=== PATIENT | male | born 1990 | race Caucasian/White ===

== ENCOUNTER → 2018-04-23 17:17 | Outpatient (CLI) | payer MEDICAID, SELFPAY ==
[2018-04-23 18:47] LABS: Free T3 2.9 pg/mL (2.18-3.98)
[2018-04-28 12:53] LABS: EBV Acute VCA IgM < 36.0 U/mL (0.0-35.9); EBV Early Antigen IgG <9.0 U/mL (0.0-8.9)
== END ==
PROVIDERS: Family Provider Family Medicine; PCP Family Medicine
DX: E03.9 Hypothyroidism, unspecified (principal); R53.82 Chronic fatigue, unspecified
CPT/HCPCS: 36415; 84481; 86663; 86664; 86665

== ENCOUNTER → 2018-08-14 17:07 | Outpatient (CLI) | payer MEDICAID, SELFPAY ==
[2018-08-14 18:22] LABS: Free T3 2.8 pg/mL (2.18-3.98)
== END ==
PROVIDERS: Family Provider Family Medicine; PCP Family Medicine
DX: E03.9 Hypothyroidism, unspecified (principal)
CPT/HCPCS: 36415; 84481

== ENCOUNTER → 2018-11-25 17:37 | Outpatient (CLI) | payer MEDICAID, SELFPAY ==
[2018-11-25 18:54] LABS: Free T3 4.5 pg/mL (2.18-3.98)
== END ==
PROVIDERS: Family Provider Family Medicine; PCP Family Medicine
DX: E03.9 Hypothyroidism, unspecified (principal)
CPT/HCPCS: 36415; 84481

== ENCOUNTER 2021-05-07 08:46 | Emergency (ER) | payer MEDICAID, SELFPAY ==
[2021-05-07 08:47] VITALS: BP 152/104; PULSE 87; RESP 14; TEMP 36.4; O2SAT 98; BMI 27.1
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
[2021-05-07] MEDS: 0.9% Normal Saline 1,000 ML 150 ML IV (09:02)
[2021-05-07] MEDS: Morphine 4 MG/ML Syringe IV ×3 (09:02→11:41)
[2021-05-07] MEDS: Ondansetron 4 MG/2 ML Vial IV (09:02)
[2021-05-07 09:08] VITALS: BP 167/82; PULSE 88; RESP 14; O2SAT 100
[2021-05-07 09:13] LABS: Absolute Lymphocyte Count 2.51 X10^3/uL (0.83-4.51); Absolute Neutrophil Count 3.3 X10^3/uL (2.0-7.7); Basophil# 0.03 X10^3/uL; Basophil% 0.5 % (0-1); Eosinophil# 0.19 X10^3/uL; Hematocrit 43.7 % (40-54); Hemoglobin 14.8 g/dL (13.0-16.5); Lymphocyte # 2.51 X10^3/ul (0.83-4.51); Lymphocyte % 39.1 % (19-41); Mean Corp Hgb Conc 33.9 g/dL (32-36); Mean Corpuscular Hgb 29.1 pg (27.0-32.0); Mean Platelet Vol. 8.8 fl (6.2-12.0); Monocyte# 0.38 X10^3/uL; Monocyte% 5.9 % (0-10); NRBC Flagged by Analyzer 0 % (0-5); Neutrophil # 3.28 X10^3/uL (2.7-7.7); Platelet Count 253 K/mm3 (150-450); RBC Distribution Width CV 11.6 % (11.6-14.6); RBC Distribution Width SD 36.4 fl (35.1-43.9); Red Blood Count 5.08 M/mm3 (4.6-6.2); White Blood Count 6.4 K/mm3 (4.4-11.0)
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
[2021-05-07 09:28] LABS: Anion Gap 5 (5-15); BUN 18 mg/dL (7-18); Calcium,Total 8.4 mg/dL (8.5-10.1); Chloride 108 mmol/L (98-107); Creatinine, Serum 1.06 mg/dL (0.70-1.30); EST Glomerular Filtration Rate 87 mL/min (>60); Est Glom Filt Rate - Afr Amer 105 mL/min (>60); Estimated Creatinine Clearance 111.84 ml/min; Glucose 160 mg/dL (74-106); Potassium 3.3 mmol/L (3.5-5.1); Sodium Level 139 mmol/L (136-145)
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
[2021-05-07 11:09] VITALS: BP 132/79; PULSE 76; RESP 14; O2SAT 99
[2021-05-07] MEDS: Diphth,Pertuss(Acell),Tet Vac 0.5 ML Vial IM (11:29)
== END 2021-05-07 11:58 | disposition other institution (70) ==
PROVIDERS: Emergency Provider Emergency Medicine; PCP Family Medicine
DX: S82.301A Unspecified fracture of lower end of right tibia, initial encounter for closed fracture (principal); S82.831A Other fracture of upper and lower end of right fibula, initial encounter for closed fracture; V89.2XXA Person injured in unspecified motor-vehicle accident, traffic, initial encounter; Y93.89 Activity, other specified; Y92.410 Unspecified street and highway as the place of occurrence of the external cause; Y99.8 Other external cause status
CPT/HCPCS: 90471; 70450; 71045; 72040; 72170; 73080; 73590; 80048; 85025; 90715; 96361; 96374; 96375; 96376; 99285; J2405